=== PATIENT | male | born 1975 | race Caucasian/White ===

== ENCOUNTER 2024-03-13 18:03 | Emergency (ER) | payer MEDICAID, SELFPAY ==
--- NOTE | ~2024-03-13 | XR_ITS ---
EXAMINATION: XR KNEE, LEFT CLINICAL INFORMATION: Fall. Knee pain. COMPARISON: None available. TECHNIQUE: Two views of the left knee. FINDINGS: No fracture or joint effusion. Alignment is anatomic. Joint spaces are maintained. No abnormal soft tissue calcification. XR/XR knee LT 2V IMPRESSION: Normal left knee.
[2024-03-13 20:19] VITALS: BP 109/78; PULSE 109; RESP 18; TEMP 36.6; O2SAT 96; BMI 31.0
--- NOTE | 2024-03-13 20:20 | ED.EXTPRO ---
HPI - Extremity Problem General Chief complaint: Extremity Injury, Lower Stated complaint: L leg pain, ?fracture Related Data Allergies Allergy/AdvReac Type Severity Reaction Status Date / Time amoxicillin Allergy Rash Verified 03/13/24 20:21 Penicillins Allergy Rash Verified 03/13/24 20:21 [facility] Social History Social History Advance Directives: No Advance Directives Information Provided: No Do you have a plan to hurt others: No Plan Physical Exam Vital Signs: Vital Signs: Last Vital Signs Temp 97.8 F 03/13/24 20:19 Pulse 109 H 03/13/24 20:19 Resp 18 03/13/24 20:19 BP 109/78 03/13/24 20:19 Pulse Ox 96 03/13/24 20:19 O2 Del Method Room Air 03/13/24 20:19 BMI result Body Mass Index 31.0 Course Course Course Narrative: This is a rapid medical exam completed by Romeo AJN: Additional HPI, ROS, PE not included below will be deferred to primary provider. Was at a [employer] when his knee buckled and gave out and he fell to the group. The girl next to hip heard a 'bunch of snaps' when he fell. Reports decreased ROM and cannot weightbear Medications Administered Discontinued Medications Generic Name Dose Route Start Last Admin Trade Name Scottq PRN Reason Stop Dose Admin Acetaminophen 975 mg 03/13/24 20:22 03/13/24 20:25 Acetaminophen 325 Mg Tablet PO 03/13/24 20:23 975 mg ONCE ONE Administration Ibuprofen 600 mg 03/13/24 20:22 03/13/24 20:24 Ibuprofen 600 Mg Tablet PO 03/13/24 20:23 600 mg ONCE ONE Administration Discharge Plan Discharge Clinical Impression: Left before treatment completed Patient Disposition: Left W/O Completing Treatment Discharge Date/Time: 03/13/24 23:58
[2024-03-13] MEDS: Ibuprofen 600 MG TABLET PO (20:24)
[2024-03-13] MEDS: Acetaminophen 325 MG TABLET 975 MG PO (20:25)
== END 2024-03-13 23:58 | disposition left against medical advice (07) ==
PROVIDERS: Emergency Provider Emergency Medicine
DX: M79.605 Pain in left leg (principal)
CPT/HCPCS: 73560; 99282; 99283